=== PATIENT | female | born 1940 | race Caucasian/White ===

== ENCOUNTER 2019-01-30 10:41 | Outpatient (CLI) | payer MEDICARE ==
--- NOTE | 2019-01-30 13:05 | DEXA Report ---
Reason: OSTEOPENIA OF HIP Procedure Date: 01/30/2019 Accession Number: [id number] / [id number] Procedure: DEX - Dexa Spine and/or Hip CPT Code: Final Report FULL RESULT: EXAM: Dexa Spine and/or Hip DATE: 01/30/2019 11:09 AM CLINICAL HISTORY: OSTEOPENIA OF HIP TECHNIQUE: Dual energy x-ray absorptiometry (DXA) was performed on a [employer] System. Regions measured are the AP Spine, femoral neck, and if needed forearm. COMPARISON: None. In accordance with the International Society for Clinical Densitometry (ISCD) guidelines, data from previous exams may be reanalyzed using current recommendations and techniques. This is done to allow a more accurate basis for comparison with the current study. FINDINGS: The data for the lumbar spine is as follows: BMD (g/cm/cm) T-SCORE Z-SCORE REGION L1 0.827 -2.5 -1.0 L2 0.998 -1.7 -0.2 L3 1.174 -0.2 1.3 L4 1.227 0.2 1.7 TOTAL 1.075 -0.9 0.6 NOTE: All evaluable vertebrae are used for classification The data for the hip is as follows: BMD (g/cm/cm) T-SCORE Z-SCORE REGION Neck 0.836 -1.5 0.4 TOTAL 0.953 -0.4 1.2 NOTE: The femoral neck or total proximal femur, whichever is lowest, is used for classification. IMPRESSION: THE WHO CLASSIFICATION BASED ON THE INTERNATIONAL REFERENCE STANDARD IS OSTEOPENIA. THE FRACTURE RISK IS INCREASED. RECOMMENDATION: Patients with diagnosis of osteoporosis or osteopenia should have regular bone mineral density assessment. For those eligible for Medicare, routine testing is allowed once every 2 years. Testing frequency can be increased for patients who have rapidly progressing disease or for those who are receiving medical therapy to restore bone mass. COMMENT: World Health Organization (WHO) definitions for osteoporosis and osteopenia: NORMAL BMD: T-score at -1.0 or higher, fracture risk is low OSTEOPENIA BMD: T-score between -1.0 and -2.5, fracture risk is increased. OSTEOPOROSIS BMD: T-score at -2.5 or lower, fracture risk is high. National Osteoporosis Foundation recommends: 1. Obtain adequate dietary calcium (at least 1200 mg per day) and vitamin D (400-800 international units per day). 2. Participate, as appropriate, in regular weightbearing and muscle-strengthening exercise. 3. Avoid tobacco use and reduce alcohol and caffeine intake. 4. For more detailed information see the website at www.NOF.org.
== END 2019-01-30 10:42 | disposition home or self-care (01) ==
LOC: DI 10:41
PROVIDERS: ATTEND Internal Medicine Endocrinology, Diabetes & Metabolism
DX: M85.88 Other specified disorders of bone density and structure, other site (principal)
CPT/HCPCS: 77080

== ENCOUNTER 2019-01-30 10:45 | Outpatient (CLI) | payer MEDICARE ==
--- NOTE | 2019-01-30 12:38 | Mammography Report ---
Reason: ROUTINE MAMMO Procedure Date: 01/30/2019 Accession Number: [id number] / [id number] Procedure: [facility] - Screening Mammo w/Wilber CPT Code: Final Report FULL RESULT: EXAM: Screening Mammo w/Wilber DATE: 01/30/2019 11:37 AM CLINICAL HISTORY: Routine screening. No reported personal or family history of breast cancer. TECHNIQUE: (B) - Bilateral CC and MLO views were obtained. COMPARISON: 04/25/2015 through 08/19/2010. PARENCHYMAL PATTERN: (A) - The breasts demonstrate scattered fibroglandular densities bilaterally. FINDINGS: Bilateral breasts: There are no suspicious masses, calcifications, or areas of distortion. IMPRESSION: Negative examination. BI-RADS category 1. RECOMMENDATION: (ANNUAL) - Recommend routine annual screening mammography. BI-RADS CATEGORY: (1) - Negative. STANDARD QUALIFYING STATEMENTS: 1. This examination was not reviewed with the aid of Computer-Aided Detection (CAD). 2. A negative or benign imaging report should not preclude biopsy if clinically suspicious findings are present. 3. Dense breasts may obscure an underlying neoplasm. 4. This examination was reviewed with the aid of 3D breast imaging (tomosynthesis).
== END 2019-01-30 10:46 | disposition home or self-care (01) ==
LOC: DI 10:45
DX: Z12.31 Encounter for screening mammogram for malignant neoplasm of breast (principal)
CPT/HCPCS: 77063; 77067

== ENCOUNTER 2021-02-08 08:00 | Outpatient (CLI) | payer MEDICARE ==
--- NOTE | 2021-02-08 13:43 | XRAY Report ---
PROCEDURE: Chest 2 View X-Ray INDICATIONS: BRONCHITIS ACUTE, FATIGUE TECHNIQUE: 2 view(s) of the chest. COMPARISON: Correlation is made with overlapping portions of the abdominal plain films, 04/05/2013 FINDINGS: Surgical changes and devices: Right upper quadrant clips are faintly seen. Lungs and pleura: No pleural effusions or pneumothorax. Lungs are clear. Mediastinum: The aorta demonstrates mild prominence and tortuosity. Heart size is normal. Bones and chest wall: No suspicious bony abnormalities. Age-appropriate degenerative changes are see n. There is accentuated thoracic kyphosis. Soft tissues appear unremarkable. IMPRESSION: Clear lungs. Postoperative and degenerative changes are seen. Reviewed by: Abraham Das MD on 02/08/2021 12:42 PM [place] Approved by: Abraham Das MD on 02/08/2021 12:42 PM [facility] Station ID: [id number]
== END 2021-02-08 23:59 | disposition home or self-care (01) ==
LOC: DI.S 08:00
PROVIDERS: ATTEND Physician Assistant Medical
DX: R53.83 Other fatigue (principal); J20.9 Acute bronchitis, unspecified; Z20.822 Contact with and (suspected) exposure to COVID-19
CPT/HCPCS: 71046; U0004

== ENCOUNTER 2021-04-27 08:00 | Outpatient (CLI) | payer MEDICARE ==
--- NOTE | 2021-04-27 14:41 | XRAY Report ---
PROCEDURE: Foot 3 View LT INDICATIONS: LEFT FOOT PAIN TECHNIQUE: 3 views of the foot were acquired. COMPARISON: X-ray ankle 04/27/2021 FINDINGS: Bones: Minimal punctate calcifications are noted distal to the fibula, as well as medial malleolus. N o suspicious bony lesions. Calcaneal spur is present. Soft tissues: No tibiotalar joint effusion. Achilles tendon appears normal. IMPRESSION: Minimal punctate distal fibular and medial malleolar calcifications. These could represent avulsion i njuries of indeterminate age or potentially degenerative change. Recommend correlation point had tend erness and short interval imaging follow-up in 7-10 days. Reviewed by: Edith Chowdary MD on 04/27/2021 2:39 PM PST Approved by: Edith Chowdary MD on 04/27/2021 2:39 PM PST Station ID: [id number]
--- NOTE | 2021-04-27 14:41 | XRAY Report ---
PROCEDURE: Ankle 3 View LT INDICATIONS: LEFT ANKLE PAIN TECHNIQUE: 3 views of the ankle were acquired. COMPARISON: X-ray foot 04/27/2021 FINDINGS: Bones: Minimal punctate calcifications are noted distal to the fibula, as well as medial malleolus. N o suspicious bony lesions. Calcaneal spur is present. Soft tissues: No tibiotalar joint effusion. Achilles tendon appears normal. IMPRESSION: Minimal punctate distal fibular and medial malleolar calcifications. These could represent avulsion i njuries of indeterminate age or potentially degenerative change. Recommend correlation point had tend erness and short interval imaging follow-up in 7-10 days. Reviewed by: Edith Chowdary MD on 04/27/2021 2:40 PM PST Approved by: Edith Chowdary MD on 04/27/2021 2:40 PM PST Station ID: [id number]
== END 2021-04-27 23:59 | disposition home or self-care (01) ==
LOC: DI.S 08:00
PROVIDERS: ATTEND Physician Assistant Medical
DX: M89.8X7 Other specified disorders of bone, ankle and foot (principal)